=== PATIENT | female | born 1995 | race Caucasian/White ===

== ENCOUNTER 2021-01-12 03:44 | Emergency (ER) | payer MEDICAID ==
[~2021-01-12] VITALS: Ht 160 cm; Wt 57.0 kg
[2021-01-12] MEDS ORDERED: ACETAMINOPHEN WITH CODEINE 300/30MG TABLET PO ONE (05:15)
[2021-01-12 12:20] VITALS: BP 131/74
[2021-01-12] MEDS ORDERED: IBUP-2029 MT (12:27)
== END 2021-01-12 13:05 | disposition home or self-care (01) ==
LOC: ER 03:44
DX: S42.035A Nondisplaced fracture of lateral end of left clavicle, initial encounter for closed fracture (principal); S00.83XA Contusion of other part of head, initial encounter; F41.9 Anxiety disorder, unspecified; F32.A Depression, unspecified; Y04.0XXA Assault by unarmed brawl or fight, initial encounter; Y07.03 Male partner, perpetrator of maltreatment and neglect; Y93.89 Activity, other specified; Y92.59 Other trade areas as the place of occurrence of the external cause
CPT/HCPCS: 70486; 73060; 73080; 81025; 99284

== ENCOUNTER 2021-07-28 23:21 | Emergency (ER) | payer MEDICAID ==
[~2021-07-28] VITALS: Ht 160 cm; Wt 59.0 kg
[~2021-07-28 23:21] MED LIST: IBUP-2029 MT
[2021-07-29 00:53] LABS: BASOPHILS % 1.1 % (0.0-2.0); EOSINOPHILS % 2.9 % (0.0-5.0); HEMATOCRIT. 29.1 % (36.0-48.0); HEMOGLOBIN. 9.2 g/dL (12.0-16.0); LYMPHOCYTES % 28.3 % (20.0-50.0); MEAN CORPUSCULAR HEMOGLOBIN 21.3 pg (28.0-32.0); MEAN CORPUSCULAR VOLUME 67.5 fL (81.0-99.0); MEAN PLATELET VOLUME 6.8 fl (7.4-10.4); MONOCYTES % 13.4 % (2.0-8.0); NEUTROPHILS % 54.3 % (40.0-76.0); PLATELET 438 x1000/uL (130-400); RED BLOOD CELL COUNT 4.31 mill/uL (4.2-5.4); RED CELL DISTRIBUTION WIDTH 17.7 % (11.6-14.6)
[2021-07-29 00:58] LABS: CHLORIDE 102 mEq/L (98-107)
[2021-07-29 00:59] LABS: HCG SCREEN NEGATIVE
[2021-07-29 01:08] LABS: B-HCG QUANTITATIVE < 1 mIU/mL (<3)
[2021-07-29 04:46] LABS: PLATELET ESTIMATE SLIGHTLY INCREASED
[2021-07-29 06:23] LABS: CLARITY URINE CLEAR (CLEAR); COLOR URINE YELLOW (YELLOW); KETONES URINE NEGATIVE (NEGATIVE); LEUKOCYTE ESTERASE URINE 2+ (NEGATIVE); NITRITE URINE NEGATIVE (NEGATIVE); OCCULT BLOOD URINE NEGATIVE (NEGATIVE); PROTEIN URINE TRACE (NEGATIVE); SPECIFIC GRAVITY URINE 1.024 (1.005-1.030); UROBILINOGEN URINE 0.2 E.U./dL (0.2-1.0)
[2021-07-29] MEDS ORDERED: NITR-87 MT (07:20)
[2021-07-29 09:03] VITALS: BP 133/81
== END 2021-07-29 09:18 | disposition home or self-care (01) ==
LOC: ER 23:21
DX: N93.9 Abnormal uterine and vaginal bleeding, unspecified (principal); F12.10 Cannabis abuse, uncomplicated; F15.10 Other stimulant abuse, uncomplicated
CPT/HCPCS: 36415; 76830; 76856; 80048; 81003; 84702; 84703; 85025; 86850; 86900; 99284

== ENCOUNTER 2021-12-04 14:29 | Emergency (ER) | payer MEDICAID, OTHER ==
[~2021-12-04] VITALS: Ht 165.1 cm; Wt 59.0 kg
[~2021-12-04 14:29] MED LIST changes: +NITR-87 MT
[2021-12-04 14:33] VITALS: BP 118/78
[2021-12-04] MEDS ORDERED: SULFAMETHOXAZOLE/TRIMETHOPRIM 800/160MG TABLET PO ONE (15:15)
[2021-12-04] MEDS ORDERED: AMOXICILLIN/POTASSIUM CLAVULANATE 875/125MG TAB PO ONE (15:15)
[2021-12-04] MEDS ORDERED: AMOX1TAB16 MT (15:57)
[2021-12-04] MEDS ORDERED: SULF1TAB48 MT (15:57)
[2021-12-04] MEDS ORDERED: ACET-2708 MT (15:57)
== END 2021-12-04 17:05 | disposition home or self-care (01) ==
LOC: ER 14:36
DX: N76.2 Acute vulvitis (principal); F12.10 Cannabis abuse, uncomplicated; F15.10 Other stimulant abuse, uncomplicated
CPT/HCPCS: 99283

== ENCOUNTER 2022-03-13 23:10 | Emergency (ER) | payer MEDICAID ==
[~2022-03-13] VITALS: Ht 162.6 cm; Wt 55.0 kg
[~2022-03-13 23:10] MED LIST changes: +ACET-2708 MT; +AMOX1TAB16 MT; +SULF1TAB48 MT
[2022-03-13 23:21] VITALS: BP 108/74
[2022-03-13] MEDS ORDERED: TETANUS, DIPHTHERIA, PERTUSSIS VAC/PF 0.5ML (>10YR OLD) IM ONE (23:45)
[2022-03-13] MEDS ORDERED: ACETAMINOPHEN 325MG TABLET PO ONE (23:45)
[2022-03-14] MEDS ORDERED: LIDOCAINE HCL/PF 1% 10 MG/ML 5ML VIAL INFIL ONE (02:45)
[2022-03-14] MEDS ORDERED: BACITRACIN ZINC OINT UDPKT TOP ONE (02:45)
== END 2022-03-14 03:25 | disposition left against medical advice (07) ==
LOC: ER 23:10
DX: S31.825A Open bite of left buttock, initial encounter (principal); F12.10 Cannabis abuse, uncomplicated; F15.10 Other stimulant abuse, uncomplicated; Z98.890 Other specified postprocedural states; W54.0XXA Bitten by dog, initial encounter; Y93.89 Activity, other specified; Y92.89 Other specified places as the place of occurrence of the external cause; Y99.8 Other external cause status
CPT/HCPCS: 99283